=== PATIENT | female | born 1950 | race Caucasian/White ===

== ENCOUNTER → 2020-10-27 | Outpatient (CLI) | payer MEDICARE ==
[~2020-10-27] MED LIST: ADVAIR 250/501 EA; ADVAIR 250/501 EA INH; ATORVASTATIN CA40 M1 PO; AUGMENTIN 500 M1 TAB PO; COPAXONE20 MG/ML MR; Copaxone 20M20 MG/ML; FLUOXETINE20 MG; HYDROCODONE BIT1 T11 PO; LEVAQUIN750 MG PO; OMEPRAZOLE D/R20 MG; OMNICEF300 MG PO; PREDNISONE10 MG PO; PRILOSEC20 MG PO; PROZAC20 MG PO; SPIRIVA -- 3018 MCG; SPIRIVA18 MCG PO; SYMBICORT1 AE1 INH; VALSARTAN80 MG PO; VICO75300 PO; ZITHROMAX Z PA250 MG PO
== END | disposition home or self-care (01) ==
LOC: MAMMO 09-06 11:30
PROVIDERS: ATTEND Internal Medicine
DX: Z12.31 Encounter for screening mammogram for malignant neoplasm of breast (principal)

== ENCOUNTER → 2021-12-19 | Outpatient (CLI) | payer OTHER, MEDICARE | END | disposition home or self-care (01) | LOC: MAMMO 00:19 | PROVIDERS: ATTEND Internal Medicine | DX: Z12.31 Encounter for screening mammogram for malignant neoplasm of breast (principal); N64.89 Other specified disorders of breast ==

== ENCOUNTER → 2022-09-01 | Outpatient (CLI) | payer OTHER | END | disposition home or self-care (01) | LOC: RAD 01:03 | PROVIDERS: ATTEND Internal Medicine | DX: M85.9 Disorder of bone density and structure, unspecified (principal); M85.80 Other specified disorders of bone density and structure, unspecified site; Z78.0 Asymptomatic menopausal state ==

== ENCOUNTER → 2022-12-20 | Outpatient (CLI) | payer OTHER | END | disposition home or self-care (01) | LOC: MAMMO 00:36 | PROVIDERS: ATTEND Internal Medicine | DX: Z12.31 Encounter for screening mammogram for malignant neoplasm of breast (principal) ==

== ENCOUNTER → 2024-04-08 | Outpatient (CLI) | payer OTHER | LOC: MAMMO 01:21 | PROVIDERS: ATTEND Internal Medicine | DX: Z12.31 Encounter for screening mammogram for malignant neoplasm of breast (principal) ==

== ENCOUNTER → 2025-05-25 | Outpatient (CLI) | payer OTHER | LOC: MAMMO 02:08 | PROVIDERS: ATTEND Internal Medicine | DX: Z12.31 Encounter for screening mammogram for malignant neoplasm of breast (principal); R92.313 Mammographic fatty tissue density, bilateral breasts ==